=== PATIENT | male | born 2005 | race Hispanic/Latino ===

== ENCOUNTER 2024-11-30 10:38 | Emergency (ER) | payer MEDICAID ==
[~2024-11-30] VITALS: Ht 182.9 cm; Wt 68.0 kg
[2024-11-30 11:27] VITALS: BP 131/86; PULSE 100; RESP 20; TEMP 97.9; O2SAT 99
--- NOTE | 2024-11-30 11:29 | ERN ---
General Chief Complaint: Headache Stated Complaint: HEADACHE Time Seen by MD: 10:44 Time Seen by Midlevel: 10:44 Source: patient History of Present Illness Initial Comments The patient is a 19-year-old male with a past medical history of ADHD presenting to the emergency department for evaluation of a left-sided headache that started three days ago. Patient denies any trauma to the area. Denies any history of migraines. Patient states he knows there is something wrong inside of his head and wanted to be evaluated. He was requesting a CT scan. He specifically denies any focal weakness or vision changes. Past Medical History Past Medical History: Other Medical History Other: ADHD Past Surgical History: None ROS Dictation CONSTITUTIONAL: Negative except for HPI HEAD/FACE: Negative except for HPI EENT: Negative except for HPI RESPIRATORY: Negative except for HPI GASTROINTESTINAL/ABDOMINAL: Negative except for HPI GENITOURINARY: Negative except for HPI MUSCULOSKELETAL: Negative except for HPI INTEGUMENTARY: Negative except for HPI NEUROLOGICAL/PSYCH: Negative except for HPI HEMATOLOGIC/LYMPHATIC: Negative except for HPI All Systems Negative, Except as noted above. 13 point review of systems assessed and all negative except for above. Physical Exam Physical Exam Dictation Vital Signs reviewed General Appearance: Alert, oriented x 3, no acute distress, well developed, nourished. Head and Face: non-traumatic. Eyes: PERRL, pink conjunctivas, eyelid no trauma, anterior chamber with arcus senilis. Ears: Pinnas intact and no signs of trauma or erythema ear canals clear and no discharge TM no erythema Nose: No discharge, no bleeding. Oropharynx: Mouth normal, tongue pink, pharynx clear,no erythema, tonsils no exudates, no abscesses noted, mucous membrane moist Neck: Supple, non-tender, no thyromegaly, no masses, no JVD, no bruits Breast:Deferred Chest:No tenderness, no crepitus, no paradoxical movement, no retractions Lungs:Clear, well-ventilated, symmetric, no rales, no wheezing, no rhonchi, no stridor, good breath sounds bilaterally Heart: Regular rate, regular rhythm, no murmur, no gallops Vascular: no peripheral edema, Abdomen: Soft, positive bowel sounds, nondistended, no guarding, nontender, no rebound, no masses no hepatomegaly, no splenomegaly, no Smith's sign, no hernias. Rectal: Deferred Genital: Deferred Neurological: Normal speech, motor function intact, sensory function intact Musculoskeletal: Neck nontender, full range of motion, back nontender, full ra nge of motion, Extremities: nontender, full range of motion Skin: Color pink, dry, no turgor, no rash, no lacerations, no abrasions, no contusions. Lymphatic: Deferred MDM The patient is a 19-year-old male with a past medical history of ADHD presenting to the emergency department for evaluation of a left-sided headache that started three days ago. Patient denies any trauma to the area. Denies any history of migraines. Patient states he knows there is something wrong inside of his head and wanted to be evaluated. He was requesting a CT scan. He specifically denies any focal weakness or vision changes. Upon physical examination the patient was in no acute distress. There is an area of tenderness overlying the left posterior temporal. No signs of external trauma. No hematomas. Pupils are equal round and reactive to light. His neurological examination is unremarkable. Patient was ambulatory with a normal gait. He has 5/5 strength to bilateral upper extremities. No pronator drift. No facial droop. GCS of 15. The patient was requesting a CT scan. He states he would like a CT scan ordered and if we could possibly performe the CT scan before 11:30 a.m. since he needs to go home and help his mom. I advised the patient that there was no clinical indication at this time for a CT scan of the head. Patient states he was like to leave the emergency department since he has somewhere to be. Patient ultimately eloped. ED Course Vital Signs Date Time Temp Pulse Resp B/P (MAP) Pulse Ox O2 Delivery O2 Flow Rate FiO2 11/30/24 11:27 97.9 100 20 131/86 99 Room Air* 0 21 11/30/24 10:48 97.0 102 20 135/86 97 Room Air 0 DX & DISP Disposition: Discharge Departure Impression: Primary Impression: Eloped from emergency department Condition: Stable Referrals: SELF,REFERRAL (PCP) I have reviewed the case, and I agree with, Diagnosis and Plan I performed the substantive portion of the visit. I have reviewed and personally made and approve the management plan that is documented in the note by myself or the DIONNE. I acknowledge for responsibility for the patient's management plan. KANCHAN HUNTER Nov 30, 2024 11:29 WILIAM GAUTAM DO Nov 30, 2024 17:41
--- NOTE | 2024-11-30 11:29 | NUR ---
PT AOX4 ELOPED
== END 2024-11-30 11:29 | disposition left against medical advice (07) ==
LOC: EDH 10:38
DX: R51.9 Headache, unspecified (principal)
CPT/HCPCS: 70450; 99281; 99284